=== PATIENT | female | born 2000 | race Caucasian/White ===

== ENCOUNTER 2025-05-23 20:54 | Emergency (ER) | payer OTHER ==
[~2025-05-23] VITALS: Ht 167.6 cm; Wt 97.1 kg
[2025-05-23] MEDS ORDERED: Acetaminophen/Oxycodone Hydr 7.5 MG/325 MG TABLET PO ONE (21:30)
[2025-05-23] MEDS ORDERED: SILVER SULFADIAZINE 25 GM TUBE T ONE (21:35)
[2025-05-23] MEDS ORDERED: SILVADENE20 GM T (21:38)
[2025-05-23] MEDS ORDERED: TRAMADOL HCL50 MG PO (21:38)
== END 2025-05-23 21:58 | disposition home or self-care (01) ==
LOC: ED 20:54
DX: T25.122A Burn of first degree of left foot, initial encounter (principal); T31.0 Burns involving less than 10% of body surface; X19.XXXA Contact with other heat and hot substances, initial encounter; Y93.89 Activity, other specified; Y92.89 Other specified places as the place of occurrence of the external cause; Y99.8 Other external cause status